=== PATIENT | female | born 1995 | race Caucasian/White ===

== ENCOUNTER 2022-02-18 18:31 | Emergency (ER) | payer OTHER ==
[~2022-02-18 18:31] MED LIST: Iopamidol-370 76% 500 ML 1 ML ONE
[2022-02-18 19:30] LABS: BHCG - Serum Negative (NEGATIVE); Pregs Control Background? CLEAR/WHITE (CLR/WHITE); Pregs Control Bar Appear? YES (CONTROL BAR)
[2022-02-18] MEDS ORDERED: Ketorolac Tromethamine 30 MG/ML VIAL ONE (21:26)
== END 2022-02-18 22:12 | disposition home or self-care (01) ==
LOC: ERS 18:31
DX: S16.1XXA Strain of muscle, fascia and tendon at neck level, initial encounter (principal); R10.9 Unspecified abdominal pain; R42 Dizziness and giddiness; M25.572 Pain in left ankle and joints of left foot; R29.700 NIHSS score 0; R10.814 Left lower quadrant abdominal tenderness; R10.813 Right lower quadrant abdominal tenderness; K21.9 Gastro-esophageal reflux disease without esophagitis; J45.909 Unspecified asthma, uncomplicated; M41.9 Scoliosis, unspecified; V43.52XA Car driver injured in collision with other type car in traffic accident, initial encounter; Z86.16 Personal history of COVID-19; Z79.899 Other long term (current) drug therapy
CPT/HCPCS: 36415; 70450; 71260; 72125; 74177; 84703; 96374; J1885; Q9967

== ENCOUNTER 2022-02-24 10:25 | Emergency (ER) | payer OTHER | END 2022-02-24 11:45 | disposition home or self-care (01) | LOC: ERS 10:25 | DX: S09.90XA Unspecified injury of head, initial encounter (principal); J45.909 Unspecified asthma, uncomplicated; Z86.16 Personal history of COVID-19; K21.9 Gastro-esophageal reflux disease without esophagitis; Z79.899 Other long term (current) drug therapy; V89.2XXA Person injured in unspecified motor-vehicle accident, traffic, initial encounter | CPT/HCPCS: 70450 ==